=== PATIENT | female | born 1980 | race Caucasian/White ===

== ENCOUNTER 2020-08-10 09:07 | Emergency (ER) | payer OTHER, SELFPAY ==
[2020-08-10 09:13] VITALS: BP 169/99; PULSE 90; RESP 16; TEMP 36.6; O2SAT 100
--- NOTE | 2020-08-10 09:21 | ED.SKABFB ---
HPI - Skin/Abscess/Foreign Bdy General Chief complaint: Skin/Abscess/Foreign Body Stated complaint: pos skin infection Time Seen by Provider: 08/10/20 09:21 Source: patient and RN notes reviewed History of Present Illness HPI narrative: Patient is a 40-year-old female who presents the urgent care with complaints of redness and swelling to her right hip. Patient denies of any known trauma or injury. States that she has not recently had any injections or vaccinations in the area. States that it started yesterday and seems to have gotten a lot larger. Denies of any fever, chills, nausea, vomiting. States that she has placed coconut oil on the area but denies any use of [id number] medication for swelling or itch. No other acute complaints. No acute distress noted. Patient aware of the plan of care. Some parts of this dictation were generated by voice recognition software and may contain typographical and/or grammatical inaccuracies. Related Data Home Medications Medication Instructions Recorded Confirmed norethindrone-e.estradiol-iron tablet 08/10/20 [08/15 (28)] Allergies Allergy/AdvReac Type Severity Reaction Status Date / Time No Known Allergies Allergy Verified 12/24/17 08:49 Review of Systems Review of Systems: Narrative: CONSTITUTIONAL: Denies fever, chills, or sweats. EYES: Denies visual changes, redness, or discharge. ENT: Denies rhinorrhea, congestion, sore throat, or otalgia. CARDIOVASCULAR: Denies chest pain, palpitations, or edema. RESPIRATORY: Denies cough or dyspnea. GASTROINTESTINAL: Denies abdominal pain, nausea, vomiting, or diarrhea. GENITOURINARY: Denies dysuria or hematuria. SKIN: Denies rash or itching. MUSCULOSKELETAL: Denies back pain, joint pain, or myalgia. NEUROLOGIC: Denies headache, numbness, or weakness. All other systems reviewed are negative, except as documented in HPI. PMFSH Comments At the time of my signature, I reviewed and agree with the nursing past medical, surgical, social, and family history. There is no relevant family history pertinent to the patient complaint. Exam Narrative: Exam Narrative: GENERAL: This is a well-nourished, well-developed patient, in no apparent distress. HEAD: normocephalic, atraumatic. EYES: PERRL. Sclera clear/white. Vision is grossly intact. EARS: External ears normal NOSE: External nose normal with no obvious nasal discharge, nares without redness, no rhinorrhea. THROAT: Mucous membranes moist NECK: Neck supple SKIN: warm, intact with no suspicious lesions or rash, good texture and turgor. NEURO: awake, alert, and oriented to person, place and time. There were no obvious focal neurologic abnormalities. EXTREMITIES: No clubbing, cyanosis, or edema. Course Vital Signs Vital signs: Vital Signs Temperature 97.8 F 08/10/20 09:13 Pulse Rate 90 08/10/20 09:13 Respiratory Rate 16 08/10/20 09:13 Blood Pressure 169/99 H 08/10/20 09:13 Pulse Oximetry 100 08/10/20 09:13 Temperature 97.8 F 08/10/20 09:13 Pulse Rate 90 08/10/20 09:13 Respiratory Rate 16 08/10/20 09:13 Blood Pressure 169/99 H 08/10/20 09:13 Pulse Oximetry 100 08/10/20 09:13 Reviewed-patient is informed that they may have pre-hypertension or hypertension based on a blood pressure reading in the department. I recommend the patient call the primary care provider listed on their discharge instructions or a physician of their choice this week to arrange follow-up for further evaluation of possible pre-hypertension or hypertension. MDM - Skin/Abscess/Foreign Bdy MDM Narrative Medical decision making narrative: Advised the patient to complete the steroid regimen as prescribed. May use Benadryl as needed for itching. Do not put anything on the area with the exception of a cool towel or ice. Try to keep your hands off the area and do not scratch or pick. Wear nonocclusive clothing. Avoid submerging yourself in a hot bath. If the area shows no
== END 2020-08-10 09:35 | disposition home or self-care (01) ==
PROVIDERS: Emergency Provider Nurse Practitioner Family
DX: L98.9 Disorder of the skin and subcutaneous tissue, unspecified (principal)
CPT/HCPCS: 99213; G0463

== ENCOUNTER 2025-01-13 09:00 | Outpatient (RCR) | payer OTHER, SELFPAY ==
--- NOTE | 2024-10-19 10:40 | OPREHPOC ---
Outpatient Therapy Plan of Care This is a Multidisciplinary Plan of Care that may contain components documented by all disciplines (PT, OT, and ST.) PT Problem 1 PT Problem #1 Knowledge Deficit PT Goal 1 Goal / Goal Update 1. Patient will perform independent HEP Target Visit 2 PT Problem 2 PT Problem #2 Pain PT Goal 1 Goal / Goal Update 1. Patient will report no pelvic pain for at least 1 week Target Visit 5 PT Problem 3 PT Problem #3 Impaired Strength PT Goal 1 Goal / Goal Update 1. Improve pelvic floor strength to 3/5 to reduce incontinence 2. Improve pelvic floor endurance to 10 seconds to reduce incontinence 3. Improve hip strength to 5/5 in all planes Target Visit 5 PT Problem 4 PT Problem #4 Impaired Functional ADLs PT Goal 1 Goal / Goal Update 1. Patient will report no incontinence for at least 2 weeks 2. Patient will report no need to avoid fluids in order to reduce incontinence Target Visit 5
--- NOTE | 2024-10-19 10:41 | PTOPEVAL1 ---
Assessment and note entered by Chrissy James DPT Evaluation Information Assessment Status Evaluation ICD-10 Condition Codes (PT) Weakness R53.1,Pelvic and perineal pain R10.2, Stress incontinence N39.3 Subjective Information Voiding 10 times a day. Incontinence at least 1 time a day. Will use a liner occasionally, has had to change clothes up to 2-3 times a day. Pt is avoiding fluids and peeing more frequently to avoid incontinence. Also limiting physical activity. Denies pain with urination. Can hold urge to void at least 30 minutes. BM once a day but recently noticed she has to strain more. Denies pain with BM but may have some from hemorrhoids. Some pain with intercourse or pelvic exam. Highest pain 5/10 and lowest 0/10. Pt has been 2 times, delivered vaginally 2 times . No complications. Recent hysterectomy and surgery for prolapse, 1 year ago, symptoms have slowly worsened since then . Patient goal: improve muscle control Reported Pain Level Pain Score 0: Self Report Assessment PT Clinical Summary The patient is presenting to skilled therapy with a history of progressing stress urinary incontinence and pelvic pain. She presents with significantly impaired pelvic floor strength and endurance, as well as overall decreased hip and abdominal strength, which are contributing to her incontinence up to multiple times a day. She will highly benefit from therapy to address strength impairments in order to reduce incontinence and pain and restore full function. Plan of Care Interventions Manual Therapy,Neuro Re-education,Patient/ Caregiver Education,Therapeutic Activities, Therapeutic Exercise PT Services Indicated Yes Treatment Frequency and 1 time a week for 5 visits Duration These treatments will address the objective and functional deficits as defined above. The patient will be advanced safely and appropriately in order for the patient to progress towards his/her prior level of function. Additional exercises will be introduced and as well as a comprehensive home exercise program upon discharge, if needed, ?to ensure carryover of functional gains achieved in the clinic. This treatment plan has been reviewed and agreement upon by the patient.
--- NOTE | 2024-11-22 13:08 | OPREHPOC ---
Outpatient Therapy Plan of Care This is a Multidisciplinary Plan of Care that may contain components documented by all disciplines (PT, OT, and ST.) PT Problem 1 PT Problem #1 Knowledge Deficit PT Goal 1 Goal / Goal Update 1. Patient will perform independent HEP Target Visit 2 Progress Met PT Problem 2 PT Problem #2 Pain PT Goal 1 Goal / Goal Update 1. Patient will report no pelvic pain for at least 1 week Target Visit 5 Progress Met PT Problem 3 PT Problem #3 Impaired Strength PT Goal 1 Goal / Goal Update 1. Improve pelvic floor strength to 3/5 to reduce incontinence 2. Improve pelvic floor endurance to 10 seconds to reduce incontinence 3. Improve hip strength to 5/5 in all planes update 11/22/24 1. met 2. improved to 6 seconds 3. improved, 4+/5 extension still Target Visit 5 Progress Partially Met PT Problem 4 PT Problem #4 Impaired Functional ADLs PT Goal 1 Goal / Goal Update 1. Patient will report no incontinence for at least 2 weeks 2. Patient will report no need to avoid fluids in order to reduce incontinence update 11/22/24 1. 2 times per week 2. met Target Visit 5 Progress Partially Met
--- NOTE | 2024-11-22 13:09 | PTOPPROG ---
Assessment and note entered by Chrissy James DPT Evaluation Information Assessment Status Progress ICD-10 Condition Codes (PT) Weakness R53.1,Pelvic and perineal pain R10.2, Stress incontinence N39.3 Subjective Information Pt reports she is feeling improvements and her incontinence is happening less often. Volume has also decreased overall. Reports no recent pelvic pain. No pantiliner use. Incontinence 2 times in the last week. Assessment PT Clinical Summary The patient has made excellent progress in therapy so far. She demonstrates improved pelvic floor strength and endurance, as well as overall improved hip and abdominal strength. She reports decreased volume of incontinence and decreased frequency of incontinence to 2 times in the last week. She no longer needs to wear liners. Due to her progress but continued incontinence, she will benefit from further therapy to return to full function. Plan of Care Interventions Manual Therapy,Neuro Re-education,Patient/ Caregiver Education,Therapeutic Activities, Therapeutic Exercise PT Services Indicated Yes Treatment Frequency and 1 visit per week x 5 visits Duration These treatments will address the objective and functional deficits as defined above. The patient will be advanced safely and appropriately in order for the patient to progress towards his/her prior level of function. Additional exercises will be introduced and as well as a comprehensive home exercise program upon discharge, if needed, ?to ensure carryover of functional gains achieved in the clinic. This treatment plan has been reviewed and agreement upon by the patient.
--- NOTE | 2024-12-28 08:47 | OPREHPOC ---
Outpatient Therapy Plan of Care This is a Multidisciplinary Plan of Care that may contain components documented by all disciplines (PT, OT, and ST.) PT Problem 1 PT Problem #1 Knowledge Deficit PT Goal 1 Goal / Goal Update 1. Patient will perform independent HEP Target Visit 2 Progress Met PT Problem 2 PT Problem #2 Pain PT Goal 1 Goal / Goal Update 1. Patient will report no pelvic pain for at least 1 week Target Visit 5 Progress Met PT Problem 3 PT Problem #3 Impaired Strength PT Goal 1 Goal / Goal Update 1. Improve pelvic floor strength to 3/5 to reduce incontinence 2. Improve pelvic floor endurance to 10 seconds to reduce incontinence 3. Improve hip strength to 5/5 in all planes update 11/22/24 1. met 2. improved to 6 seconds 3. improved, 4+/5 extension still update 12/28/24 all met Target Visit 10 Progress Met PT Problem 4 PT Problem #4 Impaired Functional ADLs PT Goal 1 Goal / Goal Update 1. Patient will report no incontinence for at least 2 weeks 2. Patient will report no need to avoid fluids in order to reduce incontinence update 11/22/24 1. 2 times per week 2. met update 12/28/24 1. 1 time per week Target Visit 15 Progress Partially Met
--- NOTE | 2024-12-28 08:47 | PTOPPROG ---
Assessment and note entered by Chrissy James DPT Evaluation Information Assessment Status Progress ICD-10 Condition Codes (PT) Weakness R53.1,Pelvic and perineal pain R10.2, Stress incontinence N39.3 Subjective Information Incontinence 1 time in the last week. Thinks it is averaging once a week overall recently. Small volume as well. Has not used pads or liners for several weeks. Overall reports the incontinence has greatly improved Assessment PT Clinical Summary The patient has continued to make good progress in therapy and reports incontinence has decreased to once a week, very small volume. She has not needed to use liners or pads for weeks. She demonstrates improved hip strength as well as improved pelvic floor endurance and coordination. Due to her progress but continued incontinence, she will benefit from further therapy to eliminate incontinence and return to full function. Plan of Care Interventions Manual Therapy,Neuro Re-education,Patient/ Caregiver Education,Therapeutic Activities, Therapeutic Exercise PT Services Indicated Yes Treatment Frequency and 1 visit every other week for 3-5 visits Duration These treatments will address the objective and functional deficits as defined above. The patient will be advanced safely and appropriately in order for the patient to progress towards his/her prior level of function. Additional exercises will be introduced and as well as a comprehensive home exercise program upon discharge, if needed, ?to ensure carryover of functional gains achieved in the clinic. This treatment plan has been reviewed and agreement upon by the patient.
--- NOTE | 2025-01-17 09:14 | PCPTNOTE ---
This treatment is being continued on visit number [id number]. Please see documentation on both accounts to view progress. Completed interventions, outcomes, and problems have been marked as Inactive to facilitate the copying of the Care plan routine for recurring accounts.
== END 2025-01-16 08:11 | disposition hospice, home (50) ==
LOC: ANHPT 09:00
PROVIDERS: Visit Provider Obstetrics & Gynecology
DX: R10.2 Pelvic and perineal pain (principal)
CPT/HCPCS: 97112; 97161; 97530

== ENCOUNTER 2025-03-14 13:00 | Outpatient (RCR) | payer OTHER, SELFPAY ==
--- NOTE | 2025-01-17 09:15 | PCPTNOTE ---
The treatment documented on this account is a continuation of the treatment documented on visit number [id number]. Please see documentation on both accounts to view progress. The Plan of Care has been transitioned and updated within the new V#. I have addressed and agree with the discipline specific Problems, Interventions, and Goals for the current certification period. Completed interventions, outcomes, and problems have been marked as Inactive to facilitate the copying of the Care plan routine for recurring accounts.
--- NOTE | 2025-01-25 10:21 | OPREHPOC ---
Outpatient Therapy Plan of Care This is a Multidisciplinary Plan of Care that may contain components documented by all disciplines (PT, OT, and ST.) PT Problem 1 PT Problem #1 Knowledge Deficit PT Goal 1 Goal / Goal Update 1. Patient will perform independent HEP Target Visit 2 Progress Met PT Problem 2 PT Problem #2 Pain PT Goal 1 Goal / Goal Update 1. Patient will report no pelvic pain for at least 1 week Target Visit 5 Progress Met PT Problem 3 PT Problem #3 Impaired Strength PT Goal 1 Goal / Goal Update 1. Improve pelvic floor strength to 3/5 to reduce incontinence 2. Improve pelvic floor endurance to 10 seconds to reduce incontinence 3. Improve hip strength to 5/5 in all planes update 11/22/24 1. met 2. improved to 6 seconds 3. improved, 4+/5 extension still update 12/28/24 all met Target Visit 10 Progress Met PT Problem 4 PT Problem #4 Impaired Functional ADLs PT Goal 1 Goal / Goal Update 1. Patient will report no incontinence for at least 2 weeks 2. Patient will report no need to avoid fluids in order to reduce incontinence update 11/22/24 1. 2 times per week 2. met update 12/28/24 1. 1 time per week update 01/25/25 1. 1 time per week Target Visit 15 Progress Partially Met
--- NOTE | 2025-01-25 10:21 | PTOPPROG ---
Assessment and note entered by Chrissy James DPT Evaluation Information Assessment Status Progress ICD-10 Condition Codes (PT) Weakness R53.1,Pelvic and perineal pain R10.2, Stress incontinence N39.3 Subjective Information Incontinence 1-2 times a week and seems to be when she gets caught off guard. One time in the last week. Small volume and still not having to use pad or liners. Overall feels her incontinence has greatly improved. Assessment PT Clinical Summary The patient has continued to make progress in therapy. She demonstrates improved pelvic floor strength and improved abdominal strength. She reports one instance of incontinence in the last week and is a very small volume. She will continue to benefit from skilled therapy to return to prior level function of no incontinence with any level of activity. PFIQ improved to 12.67% Plan of Care Interventions Manual Therapy,Neuro Re-education,Patient/ Caregiver Education,Therapeutic Activities, Therapeutic Exercise PT Services Indicated Yes Treatment Frequency and 1 visit every other week x 4 visits Duration These treatments will address the objective and functional deficits as defined above. The patient will be advanced safely and appropriately in order for the patient to progress towards his/her prior level of function. Additional exercises will be introduced and as well as a comprehensive home exercise program upon discharge, if needed, ?to ensure carryover of functional gains achieved in the clinic. This treatment plan has been reviewed and agreement upon by the patient.
--- NOTE | 2025-03-14 13:29 | PTOPDC ---
Assessment and note entered by Chrissy James DPT Evaluation Information Assessment Status Discharge ICD-10 Condition Codes (PT) Weakness R53.1,Pelvic and perineal pain R10.2, Stress incontinence N39.3 Subjective Information Pt reports she has struggled to keep up with HEP and has noticed a lot of allergies and coughing which is making her incontinence worse again. Has not been using pads or liners. Reported Pain Level Pain Score 0: Self Report Assessment PT Clinical Summary While the patient has made excellent progress overall during her course of therapy, she has reached a plateau in progress compared to her last re-evaluation. She continues to display the same pelvic floor strength, endurance, and coordination . She reports decreased frequency of incontinence overall, but has recently noticed more due to frequent coughing from allergies. Due to her plateau, plan for discharge at this time. She has been educated to continue HEP and to follow up with MD and/or PT as needed. Plan of Care PT Services Indicated No
== END 2025-03-14 13:49 | disposition home or self-care (01) ==
LOC: ANHPT 13:00
PROVIDERS: Visit Provider Obstetrics & Gynecology
DX: R10.2 Pelvic and perineal pain (principal)
CPT/HCPCS: 97112; 97530

== ENCOUNTER 2025-06-08 02:03 | Day surgery (SDC) | payer OTHER, SELFPAY ==
[2025-06-05 09:25] VITALS: BMI 29.7
--- OUTSIDE RECORDS SUMMARY | 2025-06-08 02:05 | XMS_ITS | Clinical Summary ---
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 Apply to rectum as directed. 2 Tube 0 06/08/2015 Active Family History Medical History Relation Name Comments Hypertension Father Relation Name Status Comments Father Alive Mother Alive Social History Tobacco Use Types Packs/Day Years Used Date Smoking Tobacco: Never Alcohol Use Standard Drinks/Week Comments Yes 0 (1 standard drink = 0.6 oz pur e alcohol) occasionally Comments Unknown Sex and Gender Information Value Date Recorded Sex Assigned at Not on file Legal Sex Female 5:37 PM CDT Gender Identity Not on file Sexual Orientation Not on file Last Filed Vital Signs Vital Sign Reading Time Taken Comments Blood Pressure 111/68 06/08/2015 8:14 AM AIR QUALITY ENGINEER Pulse - - Temperature 37 C (98.6 F) 06/08/2015 8:14 AM AIR QUALITY ENGINEER Respiratory Rate 16 06/08/2015 8:14 AM AIR QUALITY ENGINEER Oxygen Saturation 100% 06/08/2015 8:14 AM AIR QUALITY ENGINEER Inhaled Oxygen Concentration - - Weight 59 kg (130 lb) 06/08/2015 6:31 AM AIR QUALITY ENGINEER Height 157.5 cm (5' 2) 06/08/2015 6:31 AM AIR QUALITY ENGINEER Body Mass Index 23.78 06/08/2015 6:31 AM AIR QUALITY ENGINEER Plan of Treatment Health Maintenance Due Date Last Done Comments Hepatitis C Virus (HCV) Screening 1980 TdaP Immunization 1980 Hepatitis B Immunization (1 of 3 - 19+ 3-dose series) 02/19/2000 Pap Smear 2002 Human Papillomavirus (HPV) Immunization (1 - 3-dose SCDM series) 02/19/2008 Cervical Cancer Screening (CCS) 2011 HPV/Cotest 2011 Influenza Immunization (#1) 2025 SARS-COV-2 Immunization (1 - season) 2025 Respiratory Syncytial Virus (RSV) Immunization (Adult) (1 - 1-dose 75+ series) 02/19/2056 Meningococcal Immunization (ACWY) Aged Out No longer eligible based on patient's age to complete this topic Pneumococcal Immunization Combined Aged Out No longer eligible based on patient's age to complete this topic Rotavirus Immunization Aged Out No lo nger eligible based on patient's age to complete this topic Insurance MEDICAID [employer] Care Teams Veneer Manufacturer Relationship Specialty Start Date End Date Provider, None [place] 06/07/15
[2025-06-08 12:18] VITALS: BP 139/82; PULSE 86; RESP 20; TEMP 36.7; O2SAT 100; BMI 29.2
[2025-06-08] MEDS: LACTATED RINGERS 1,000 ML 150 ML IV CONT (12:21)
--- NOTE | 2025-06-08 13:06 | WPDHPUPDATE1 ---
History and Physical Update Update Date/Time: 06/08/25 13:06 History and Physical has been reviewed, including an updated exam of the patient. There are NO changes in the patient's condition. Risks, benefits, and alternatives have been discussed and questions answered. Patient agrees to proceed with procedure.
--- NOTE | 2025-06-08 13:08 | WPDANESEPPF ---
Anes - Initial Pre Proc Eval Procedure: Operation Date: 06/08/25 13:30 Proposed Procedures p EGD & Screening Colonoscopy - Hernandez Koo MD Date/Time: 06/08/25 13:08 Surgeon: Hernandez Koo MD Pre Op Diagnosis: SCREENING,NAUSEA AND VOMITING Patient Data Age: 45 Gender: F Height: 1.57 m Weight: 72.4 kg Last Vital Signs Temp 36.7 C 06/08/25 12:18 Pulse 86 06/08/25 12:18 Resp 20 06/08/25 12:18 BP 139/82 06/08/25 12:18 Pulse Ox 100 06/08/25 12:18 O2 Del Method Room Air 06/08/25 12:18 Allergies Allergy/AdvReac Type Severity Reaction Status Date / Time No Known Allergies Allergy Verified 06/08/25 12:15 Home Medications ?Medication ?Instructions ?Recorded ?Confirmed ?Type norethindrone 1 mg-ethinyl 1 tablet PO DAILY 08/10/20 06/08/25 History estradiol 20 mcg (21)-iron 75 mg (7) tablet (08/15 (28)) amlodipine 10 mg tablet 10 mg PO DAILY 05/30/25 06/08/25 History Patient hx anesthesia problems: none Family hx anesthesia problems: none Results Review: All pre-operative results and documents have been reviewed as part of the pre-operative evaluation. [facility] Past Medical History Medical History GERD (gastroesophageal reflux disease) Hypertension Anxiety Surgical History Surgical History Hx of hysterectomy Family History Family History Mother Heart disease Father Heart disease Social History Social History Smoking status: Never smoker Living arrangements: with family Anes - Eval Final PreProcedure Day of Procedure 06/08/25 13:08 Patient weight: overweight Heart: regular rate and rhythm Lungs: normal air movement Airway: Mallampati scale class II Neurological: alert and oriented Last oral intake: >/= 8 hours ASA classification: II Emergent: no Anesthetic plan: proceed Anesthesia type and monitoring: general GIVS and standard monitoring Results Review: All pre-operative results and documents have been reviewed as part of the pre-operative evaluation. Informed Consent: The patient's anesthetic plan and its attendant risks and benefits were discussed with the patient/family/POA. Questions were solicited and answers provided to the satisfaction of the patient/family/POA.
--- NOTE | 2025-06-08 13:19 | S_PTH ---
PATIENT: Haydee Dooley LOC: [facility]#:[id number] AGE/SX: 45/F ROOM: RE06/08/[address]: Hernandez Koo MD : 1980 BED: DIS: 06/08/2025 SPEC #: [id number] RECD: 06/08/25 14:18 STATUS: KM Dorinda #: [id number] JOJO: 06/08/25 13:[address]: Hernandez Koo DEPT: [facility] Surgical RECD BY: Stefani Velarde ENTERED: 06/08/25 14:19 SP TYPE: Surgical OTHR DR: Jarrett Mtz, MHai Tissues: A - Gastric Biopsy B - Esophageal Biopsy C - Colon Polypectomy D - Colon Polypectomy Procedures: Hematoxylin and Eosin Stain Gross and Microscopic Level 4
--- NOTE | 2025-06-08 13:25 | SUR.OPER ---
EGD ended at 1320, Colon began at 1324.
--- NOTE | 2025-06-08 13:33 | SUR.OPER ---
One out of two transverse colon polyps not retrieved. Dr. Lacey aware. No new orders.
[2025-06-08 13:39] VITALS: BP 102/60; PULSE 66; RESP 15; O2SAT 100
[2025-06-08 13:49] VITALS: BP 118/76; PULSE 67; RESP 19; O2SAT 100
[2025-06-08 13:59] VITALS: BP 107/65; PULSE 69; RESP 22; O2SAT 100
== END 2025-06-08 14:18 | disposition home or self-care (01) ==
PROVIDERS: PCP Internal Medicine Infectious Disease; Referring Provider Nurse Practitioner Family; Visit Provider Internal Medicine Gastroenterology
PROC: 0DJ08ZZ Inspection of Upper Intestinal Tract, Via Natural or Artificial Opening Endoscopic (ICD-10-PCS; CPT 45378; principal; 2025-06-08 13:30)
DX: Z12.11 Encounter for screening for malignant neoplasm of colon (principal); D12.3 Benign neoplasm of transverse colon; D12.4 Benign neoplasm of descending colon; K57.30 Diverticulosis of large intestine without perforation or abscess without bleeding; K64.4 Residual hemorrhoidal skin tags; K21.00 Gastro-esophageal reflux disease with esophagitis, without bleeding; K44.9 Diaphragmatic hernia without obstruction or gangrene
CPT/HCPCS: 45385; 43239; 88305; J2003; J2704; J7120